=== PATIENT | female | born 1990 | race Caucasian/White ===

== ENCOUNTER 2023-06-13 14:07 | Emergency (ER) | payer OTHER ==
[~2023-06-13] VITALS: Ht 180.3 cm; Wt 94.3 kg
[2023-06-13 16:54] LABS: BASOPHILS 0.3 % (0-2); EOSINOPHILS 0.3 % (0-6); HEMOGLOBIN 13.9 g/dL (12.0-18.0); LYMPHOCYTES 12.7 % (24-44); MCH 30.1 (27-36); MCHC 33.1 g/dl (30-36); MCV 91.1 fl (81-99); MONOCYTES 4.4 % (0-12); NEUTROPHILS 82.3 % (39-80); PLATELET COUNT 148 K/uL (140-440); RBC 4.61 M/ul (4.3-5.7); RDW 13.1 (10.5-15.0)
[2023-06-13 17:08] LABS: BILIRUBIN, URINE NEGATIVE (negative); BLOOD/HGB, URINE TRACE-I (Negative); KETONE, URINE TRACE (Negative); LEUK ESTERASE, URINE NEGATIVE (negative); NITRITE, URINE NEGATIVE (negative)
[2023-06-13 17:09] LABS: ALBUMIN 4.2 g/dL (3.4-5.0); ALBUMIN/GLOBULIN RATIO 1.02 (1.1-2.4); ANION GAP 14.7 (7-21); BILIRUBIN, TOTAL 0.7 ng/dL (0.2-1.0); CALCIUM 9.3 mg/dL (8.5-10.1); CREATININE, SERUM 0.75 mg/dL (0.55-1.02); POTASSIUM 3.7 mmol/L (3.5-5.1); PROTEIN, TOTAL 8.3 g/dL (6.4-8.2)
[2023-06-13 17:33] LABS: BACTERIA, URINE RARE /hpf (negative); CASTS, URINE NONE SEEN \\lpf; COLLECTION TYPE, URINE CLEAN CATCH; CRYSTALS, URINE NONE SEEN (0-1+); EPITHELIAL CELLS, URINE SQUAMOUS 1+ /lpf (0-1+); WHITE BLOOD CELLS, URINE 0-1 /HPF (0-5)
[2023-06-13 17:34] LABS: REFLEX CULTURE, URINE No (No)
[2023-06-13] MEDS ORDERED: CIPRO500 MG PO (22:10)
[2023-06-13] MEDS ORDERED: HYDROCODON-ACE1 EA10 PO (22:10)
[2023-06-13] MEDS ORDERED: ONDANSETRON ODT8 MG PO (22:10)
[2023-06-13] MEDS ORDERED: METRONIDAZOLE500 MG PO (22:10)
[2023-06-13 23:06] VITALS: BP 111/79
== END 2023-06-13 23:06 | disposition home or self-care (01) ==
LOC: ED 14:07
PROVIDERS: Emergency Medicine
DX: K57.32 Diverticulitis of large intestine without perforation or abscess without bleeding (principal); J45.909 Unspecified asthma, uncomplicated; Z88.5 Allergy status to narcotic agent; Z88.6 Allergy status to analgesic agent; Z91.040 Latex allergy status
CPT/HCPCS: 36415; 74176; 80053; 81001; 84703; 85025; 96374; 96375; 96376; 99284-25; A9270; J1885; J2405; J3010; J7121